=== PATIENT | male | born 1980 | race Caucasian/White ===

== ENCOUNTER 2023-01-12 18:01 | Emergency (ER) | payer MEDICARE, SELFPAY ==
--- NOTE | ~2023-01-12 | XR_ITS ---
EXAM: XR hand RT min 3V DATE: 01/12/2023 18:22 HISTORY: dog bite, r/o fb/fx . COMPARISON: None available. FINDINGS: Evaluation of the fingers limited in the lateral view due to overlap. Normal mineralizatio n. No fracture or dislocation. No lytic or blastic lesion. Joint spaces are maintained. No erosion or periosteal change. Medial soft tissue swelling and bandage material. IMPRESSION: No acute osseous finding in the right hand. No radiopaque foreign body. Reviewed, dictated and finalized at location K. IMPRESSION: No acute osseous finding in the right hand. No radiopaque foreign b bibi.
--- NOTE | ~2023-01-12 | XR_ITS ---
EXAM: XR wrist RT min 3V DATE: 01/12/2023 19:19 HISTORY: pain/swelling to right wrist/distal forearm . COMPARISON: None available. FINDINGS: Normal mineralization. No fracture or dislocation. No lytic or blastic lesion. Joint space s are maintained. No erosion or periosteal change. Soft tissues within normal limits. IMPRESSION: No acute osseous finding in the right wrist. Reviewed, dictated and finalized at location K.
[2023-01-12 18:06] VITALS: BP 152/75; PULSE 84; RESP 17; TEMP 36.2; O2SAT 98
[2023-01-12] MEDS: MORPHINE SULFATE (*CRX) 4 MG/ML INJ IV PUSH (19:00)
[2023-01-12] MEDS: ONDANSETRON INJ 4 MG/2 ML VIAL IV PUSH (19:00)
[2023-01-12] MEDS: AMPICILLIN SULB 3 GM/NS 100 ML 3 GM/100 ML VIAL IVPB (19:01)
[2023-01-12] MEDS: TETANUS,DIPHTHERIA,AC PERTUSSIS ADULT (0.5 ML) BOOSTRIX IM (19:01)
--- NOTE | 2023-01-12 19:04 | ED.ANIMALBIT ---
HPI - Animal Bite General Chief Complaint: Animal Bite Stated Complaint: dog bite Time Seen by Provider: 01/12/23 18:10 Source: patient Mode of arrival: ambulatory Limitations: no limitations History of Present Illness HPI narrative: Patient is a 42-year-old male, with past medical history of previous brain CA, CVA with residual aphasia, who presents to the ED with report of a dog bite to his right hand. Patient reports he was weed eating outside and went to pet his neighbors dog who was jumping up on his fence. He reached his hand over the fence when the dog latched onto his R hand. Patient states he is familiar with the dog and has never had any issues previously. Dog is up-to-date on its vaccines. Patient does not know when his last tetanus shot was. He complains of pain to his right hand and right wrist. Denies any numbness or tingling. He has not taken anything for pain prior to arrival. Related Data Allergies Allergy/AdvReac Type Severity Reaction Status Date / Time No Known Allergies Allergy Verified 01/12/23 18:05 Review of Systems Review of Systems: CONSTITUTIONAL: Denies fever, chills, or sweats. CARDIOVASCULAR: Denies chest pain. RESPIRATORY: Denies dyspnea. GASTROINTESTINAL: Denies abdominal pain, nausea, vomiting. MUSCULOSKELETAL: See HPI. NEUROLOGIC: See HPI. All systems reviewed & are unremarkable except as noted in HPI and below Exam Narrative: GENERAL: Well appearing, well-nourished, non-toxic, in no acute distress. HEAD: Normocephalic, atraumatic. NECK: Supple. No adenopathy, no masses. RESPIRATORY: Airway patent, respirations nonlabored. CARDIOVASCULAR: Regular rate and rhythm without murmurs, rubs, or gallops. Radial pulses 2+ and equal bilaterally. MUSCULOSKELETAL: Moves all extremities. Strength/ROM intact. TTP over dorsal lateral R hand and palmar surface in region of 4th/5th metacarpals/hypothenar eminence. 2 gaping lacerations to palmar surface, one larger laceration to palmar surface with some subcutaneous fat exposed. Swelling and ecchymosis surrounding. Minimal active bleeding. Mild swelling and tenderness over distal right ulna. Sensation intact to hands and fingers. Good capillary refill to all fingers. SKIN: Warm, dry, normal color. No rashes. NEURO: A&O X3. Speech slightly aphasic at times, but patient eventually able to find the appropriate words. Cranial nerves II-XII grossly intact. Steady gait. No ataxic movements. PSYCHIATRIC: Appropriate mood and affect. Normal interaction. Course Vital Signs Vital signs: Vital Signs Temperature 97.2 F L 01/12/23 18:06 Pulse Rate 84 01/12/23 18:06 Respiratory Rate 17 01/12/23 18:06 Blood Pressure 152/75 H 01/12/23 18:06 Pulse Oximetry 98 01/12/23 18:06 Temperature 97.2 F L 01/12/23 18:06 Pulse Rate 84 01/12/23 18:06 Respiratory Rate 17 01/12/23 18:06 Blood Pressure 152/75 H 01/12/23 18:06 Pulse Oximetry 98 01/12/23 18:06 Procedures Laceration Laceration 1: Date: 01/12/23 Time: 19:50 Site: hand Side (If applicable): right Description: linear Depth: simple, single layer Local Anesthetic: lidocaine 1% Amount of anesthesia used (mL): 10 Pre-repair: wound explored, irrigated and irrigated extensively ====== Skin Level ====== Skin layer closed with: nylon Size (cm): 4-0 Number of sutures: 8 Technique: simple, interrupted ====== Subcutaneous Layer ====== ====== Muscle Layer ====== ====== Tendon Layer ====== Dressin separate lacerations repaired to dorsal and palmar aspect of R hand. Two small puncture wounds repaired with 1 suture each. Two larger lacerations both approx 1.5 cm each, repaired with 3 sutures each. MDM - Animal Bite MDM Narrative Medical decision making narrative: Patient presented to ED status post dog bite to right hand. Dog up-to-date on vaccines. Patient
[2023-01-12] MEDS: KETOROLAC 30 MG/ML VIAL (*BKC) IV PUSH (19:34)
== END 2023-01-12 20:44 | disposition home or self-care (01) ==
PROVIDERS: Emergency Provider Physician Assistant; PCP Internal Medicine
DX: S61.451A Open bite of right hand, initial encounter (principal); Z23 Encounter for immunization; I69.920 Aphasia following unspecified cerebrovascular disease; Z85.841 Personal history of malignant neoplasm of brain; W54.0XXA Bitten by dog, initial encounter
CPT/HCPCS: 12001; 73110; 73130; 90471; 90715; 96365; 96375; 99284; J0295; J1885; J2270; J2405